=== PATIENT | female | born 1955 | race Caucasian/White ===

== ENCOUNTER → 2019-05-31 | Outpatient (CLI) | payer OTHER ==
--- NOTE | 2019-06-03 11:05 | MAM ---
EXAM DESCRIPTION: 3D Screening BILATERAL : Digital Mammography. CLINICAL HISTORY: 64 years Female ANNUAL SCREENING . History of "dense breast tissue". No personal or family history of breast cancer. Menarche age 12. Childbirth. Postmenopausal 12 years. No HRT Lifetime risk of developing breast cancer (Tyrer-Cuzick model)(%): 5.8. COMPARISON: Baseline study at this facility. No prior reports available. TECHNIQUE: Bilateral CC and MLO projection full-field images, digital tomosynthesis mammographic technique. Bilateral digital 2-D full-field MLO images. CAD not available for tomosynthesis or 2-D images. FINDINGS: The breast parenchymal density pattern is: Heterogeneously dense breast tissue, which may obscure small masses. No skin thickening or nipple retraction. Bilateral solitary microcalcifications. Bilateral skin moles. Focal asymmetry in the retroareolar right breast and focal asymmetry in the posterior third of the left breast at the 6:00-6:30 position, approximately 6 cm from the nipple. IMPRESSION: BI-RADS CATEGORY: 0 - INCOMPLETE- Need additional imaging evaluation. FOLLOW-UP: Recall for additional imaging: Bilateral full-field LM 2-D and tomosynthesis technique. Bilateral directed breast ultrasound of the regions of interest. Written communication concerning the IMPRESSION and Follow-up, will be mailed to the patient and referring health care provider. Electronically signed by: Gwyn Roach MD 06/03/2019 11:03 AM PHARMACOVIGILANCE SCIENTIST
== END ==
LOC: MAMMO 09:59
PROVIDERS: ATTEND Nurse Practitioner Family
DX: Z12.31 Encounter for screening mammogram for malignant neoplasm of breast (principal)

== ENCOUNTER 2019-06-08 13:55 | Emergency (ER) | payer OTHER ==
[2019-06-08] MEDS ORDERED: SODIUM CHLORIDE 0.9% (FLUSH) 10 ML SYG IV PRN (14:02)
[2019-06-08] MEDS ORDERED: ASPIRIN (CHEWABLE) 81 MG TAB PO ONE (14:13)
[2019-06-08] MEDS ORDERED: METOPROLOL TARTRATE INJ 5 MG/5 ML VIAL IV ONE (14:15)
--- NOTE | 2019-06-08 14:19 | ED.PDOC ---
History of Present Illness - General Chief Complaint: Chest Pain/IA Stated Complaint: Chest discomfort Time Seen by Provider: 06/08/19 14:01 Source: patient, Vital Signs reviewed Exam Limitations: no limitations - History of Present Illness Initial Comments: this is a 64-year-old white female who presents today with complaints of chest pain. She was seen at the walk-in clinic and sent here for further evaluation. She states that she is treated for hypertension and and hypercholesterolemia. She had a stress echo performed in 2016 and she has a planned repeat of that in the next week. It was supposed to be performed yesterday however patient did not have that approved by her insurance company. It was rescheduled for the . She sees Dr. Bettye Cardoso as her PCP. She states that she has had chest discomfort off and on for the past 3 days. She states that it feels like a heaviness on the left side of her chest. It does not radiate. She reports some shortness of breath with it. She denies any nausea or vomiting or breaking out into sweats. Patient also states that the intensity is only a 3/10 at its worse and she is not having any pain at this time. She took a baby aspirin this morning and also some metoprolol. She is noted to be hypertensive. Patient also has complained of numbness to the right side of her face for the past week. She states that she has never had a CVA or TIA. She denies any slurred speech or extremity weakness. She states that she relates it to her allergies. Allergies/Adverse Reactions: Allergies NO KNOWN ALLERGY Allergy (Verified 06/08/19 14:11) Home Medications: Ambulatory Orders Clonidine HCl 0.1 mg PO BID #30 tab 06/08/19 Escitalopram [Lexapro] 10 mg PO DAILY 06/08/19 Metoprolol Succinate [Metoprolol Succinate ER] 25 mg PO DAILY 06/08/19 Pravastatin Sodium 20 mg PO DAILY 06/08/19 cloNAZepam [Klonopin] 0.25 mg PO DAILY PRN 06/08/19 Review of Systems - Review of Systems Constitutional: States: malaise. Denies: chills, diaphoresis, fever, weakness EENTM: States: nose congestion, other - facial numbness Respiratory: States: no symptoms reported. Denies: cough, orthopnea, short of breath, stridor, wheezing Cardiology: States: chest pain, palpitations, other - pain is left-sided. Denies: edema, syncope Gastrointestinal/Abdominal: States: no symptoms reported. Denies: abdominal pain, nausea, vomiting Genitourinary: States: no symptoms reported Musculoskeletal: States: no symptoms reported. Denies: back pain, muscle pain, muscle stiffness, neck pain Skin: States: no symptoms reported. Denies: change in color, dryness Neurological: States: anxiety, numbness. Denies: headache, paresthesia, pre- existing deficit, seizure, tingling, tremors, weakness Endocrine: States: no symptoms reported Hematologic/Lymphatic: States: no symptoms reported All other Systems: Reviewed and Negative Family Medical History - Family History Mother Living Status: Hx Cardiac Disease: Yes Physical Exam - Physical Exam General Appearance: Alert, No apparent distress Eyes, Ears, Nose, Throat Exam: PERRL/EOMI, normal ENT inspection, TMs normal, pharynx normal Neck: non-tender, full range of motion, supple, normal inspection, other - no carotid bruit Respiratory: chest non-tender, lungs clear, normal breath sounds, no respiratory distress, no accessory muscle use, respiratory distress Cardiovascular/Chest: normal peripheral pulses, regular rate, rhythm, no edema, no gallop, no JVD, no murmur Peripheral Pulses: radial,right: 2+, radial,left: 2+ Gastrointestinal/Abdominal: normal bowel sounds, non tender, soft, no organomegaly, no pulsatile mass Rectal Exam: deferred Extremity: normal range of motion, non-tender, normal inspection, no pedal edema Neurologic: inside sales executive II-XII nml as tested, no motor/sensory deficits, alert, normal mood/affect, oriented x 3, other - no pronator drift, strength is 5 over 5 times all 4 extremities.no evidence of facial drooping or dysarthria. Skin Exam: normal color, warm/dry Lymphatic: no adenopathy Progress - Progress Progress: 06/08/19 15:01 EKG performed on arrival reveals no evidence of ischemic changes present. There is a normal sinus rhythm with a rate of 80, there is a left axis deviation and also an incomplete right bundle branch block. There is a T-wave inversion noted in leads [address] depressions or elevations. 06/08/19 16:28 patient is not having any chest pain. Her blood pressure is elevated currently her heart rate is in the 60s. She has a diastolic of 106. We will treat this. Patient states that she is normally very well controlled. She has not missed any of her medications. Awaiting second set of enzymes and will repeat EKG. 06/08/19 17:01 Second set of enzymes are negative. Will give a clonidine. Pt was reluctant to initially. Feels that the zyrtec made her bp elevate. She has an appt with Dr. Cardoso later this week. Will likely give a rx and give her parameter for taking it. - Results/Orders Results/Orders: IMPRESSION: No acute findings in the head/brain. Electronically signed by: Kavita Conner MD 06/08/2019 3:00 PM TESTER REGULATOR IMPRESSION: No acute findings in the chest. Electronically signed by: Kavita Conner MD 06/08/2019 2:57 PM TESTER REGULATOR 06/08/19 14:02 Sodium Chloride 0.9% (Flush) [Saline Flush Syringe] 3 ml IV PRN PRN 06/08/19 14:15 EKG STAT 06/08/19 16:20 EKG STAT 06/09/19 09:00 Pulse Ox Daily Laboratory Results - last 24 hr 06/08/19 06/08/19 06/08/19 14:20 14:20 14:20 WBC 5.8 RBC 4.84 Hgb 14.3 Hct 42.8 MCV 88.5 MCH 29.5 MCHC 33.3 RDW 13.2 Plt Count 201 MPV 9.3 Absolute Neuts (auto) 3.30 Absolute Lymphs (auto) 1.80 Absolute Monos (auto) 0.60 Absolute Eos (auto) 0.10 Absolute Basos (auto) 0.00 Neutrophils % 57.3 Lymphocytes % 31.4 Monocytes % 9.8 H Eosinophils % 1.0 Basophils % 0.5 PT 10.0 INR 1.00 PTT (SP) 25.4 D-Dimer, Quantitative 0.29 Sodium 139 Potassium 3.7 Chloride 100 L Carbon Dioxide 26 Anion Gap 16.7 BUN 17 Creatinine 0.79 BUN/Creatinine Ratio 21.5 H Random Glucose 103 Serum Osmolality 279.3 Calcium 10.6 H Magnesium 2.1 Total Bilirubin 0.7 Direct Bilirubin 0.1 Indirect Bilirubin 0.6 AST 31 ALT 24 Alkaline Phosphatase 46 Creatine Kinase 185 H CK-MB (CK-2) 4.2 CK-MB (CK-2) % 2.27 Troponin I < 0.02 B-Natriuretic Peptide 34.9 Serum Total Protein 7.6 Albumin 4.7 06/08/19 16:22 WBC RBC Hgb Hct MCV MCH MCHC RDW Plt Count MPV Absolute Neuts (auto) Absolute Lymphs (auto) Absolute Monos (auto) Absolute Eos (auto) Absolute Basos (auto) Neutrophils % Lymphocytes % Monocytes % Eosinophils % Basophils % PT INR PTT (SP) D-Dimer, Quantitative Sodium Potassium Chloride Carbon Dioxide Anion Gap BUN Creatinine BUN/Creatinine Ratio Random Glucose Serum Osmolality Calcium Magnesium Total Bilirubin Direct Bilirubin Indirect Bilirubin AST ALT Alkaline Phosphatase Creatine Kinase CK-MB (CK-2) CK-MB (CK-2) % Troponin I < 0.02 B-Natriuretic Peptide Serum Total Protein Albumin - EKG/XRAY/CT EKG: Sinus, nonspecific ST T wave Chg Comments: normal sinus rhythm with a rate of 80, left axis deviation, incomplete righ Departure - Departure Clinical Impression: Numbness and tingling of right side of face, Chest pain in adult Hypertension Qualifiers: Hypertension type: essential hypertension Qualified Code(s): I10 - Essential (primary) hypertension Time of Disposition: 17:42 Disposition: Discharge to Home or Self Care Condition: Good Departure Forms: ED Discharge - Pt. Copy, Patient Portal Self Enrollment Instructions: DI for Chest Pain, High Blood Pressure (DC) Referrals: Charbel Cardoso MD [Primary Care Provider] - 1-2 Weeks Prescriptions: Clonidine HCl 0.1 mg PO BID #30 tab Home Medications: Ambulatory Orders Clonidine HCl 0.1 mg PO BID #30 tab 06/08/19 Escitalopram [Lexapro] 10 mg PO DAILY 06/08/19 Metoprolol Succinate [Metoprolol Succinate ER] 25 mg PO DAILY 06/08/19 Pravastatin Sodium 20 mg PO DAILY 06/08/19 cloNAZepam [Klonopin] 0.25 mg PO DAILY PRN 06/08/19 Additional Instructions: patient advised to continue current medications. PCP may increase the Toprol at next visit. Clonidine may be taken if blood pressure is greater than 160/92 twice daily. Keep follow-up appointment on with Dr. Cardoso.if any worsening of symptoms or return to the ER for reevaluation.
--- NOTE | 2019-06-08 14:59 | RAD ---
EXAM: XR Chest, 1 View CLINICAL HISTORY: chest pain TECHNIQUE: Frontal view of the chest. COMPARISON: No relevant prior studies available. FINDINGS: Limitations: None. Lungs: Chronic obstructive changes present with relative paucity of vasculature in the right apex likely representing bullous change. No consolidation. Pleural space: Unremarkable. No pneumothorax. Heart: Unremarkable. No cardiomegaly. Mediastinum: Unremarkable. Bones/joints: Mild convex right scoliotic curvature of the thoracic spine. No acute osseous abnormality noted. Vasculature: Tortuous aorta. IMPRESSION: No acute findings in the chest. Electronically signed by: Kavita Cnoner MD 06/08/2019 2:57 PM RIGGING SUPERVISOR
--- NOTE | 2019-06-08 15:02 | CT ---
EXAM: CT Head Without Intravenous Contrast CLINICAL HISTORY: right facial numbness, htn TECHNIQUE: Axial computed tomography images of the head/brain without intravenous contrast. Sagittal and coronal reformatted images were created and reviewed. This CT exam was performed using one or more of the following dose reduction techniques: automated exposure control, adjustment of the mA and/or kV according to patient size, and/or use of iterative reconstruction technique. COMPARISON: No relevant prior studies available. FINDINGS: Limitations: None. Brain: Unremarkable. No hemorrhage. No significant white matter disease. No edema. Ventricles: Unremarkable. No ventriculomegaly. Bones/joints: Unremarkable. No acute fracture. Soft tissues: Unremarkable. Sinuses: Unremarkable as visualized. No acute sinusitis. Mastoid air cells: Unremarkable as visualized. No mastoid effusion. IMPRESSION: No acute findings in the head/brain. Electronically signed by: Kavita Conner MD 06/08/2019 3:00 PM [facility]
[2019-06-08] MEDS ORDERED: cloNIDine HCL 0.1 MG TAB PO ONE (16:20)
[2019-06-08 18:21] VITALS: BP 125/88; TEMP 97.6; O2SAT 98
== END 2019-06-08 18:02 | disposition home or self-care (01) ==
LOC: ER 13:55
DX: R07.9 Chest pain, unspecified (principal); I10 Essential (primary) hypertension; R20.0 Anesthesia of skin; E78.00 Pure hypercholesterolemia, unspecified; Z79.899 Other long term (current) drug therapy

== ENCOUNTER → 2019-06-14 | Outpatient (CLI) | payer OTHER ==
--- NOTE | 2019-06-15 11:21 | US ---
EXAM DESCRIPTION: Aorta: Ultrasound. CLINICAL HISTORY: OTHER ATRESIA OF AORTA COMPARISON: None. TECHNIQUE: Transcutaneous scanning: Two-dimensional and Doppler modes. FINDINGS: Abdominal aorta diameter - Proximal: 3.4 x 3.2 cm. Mid: 2.0 x 1.9 cm. Distal: 1.9 x 1.7 cm. Common Iliac diameter - Right: 12 mm. Left: 13 mm. Other: Atherosclerotic plaque at multiple segments.. IMPRESSION: 3.4 cm abdominal aortic aneurysm. Recommend follow-up every 3 years. Reference: J Am Brett Radiol 2013;10:789-794. Electronically signed by: Gwyn Roach MD 06/15/2019 11:20 AM [facility]
== END ==
LOC: US 09:45
PROVIDERS: ATTEND Family Medicine
DX: Q25.29 Other atresia of aorta (principal); I71.4 Abdominal aortic aneurysm, without rupture

== ENCOUNTER → 2020-05-08 | Outpatient (CLI) | payer OTHER ==
--- NOTE | 2020-05-09 12:24 | US ---
EXAM DESCRIPTION: Renal: Ultrasound. CLINICAL HISTORY: 65 years Female CYST OF KIDNEY COMPARISON: None TECHNIQUE: Transcutaneous scanning: Two-dimensional and Doppler modes. FINDINGS: Right kidney measures 11.2 x 4.2 x 5.3 cm; volume 131.1 ml. Mid-renal cortical thickness 10 mm. . Increased cortical echogenicity but less than the liver. No hydronephrosis No echogenic stones. Smooth contour of the kidney with no perinephric fluid. Normal vascularity. Proximal ureter not visualized. Left kidney measures 10.4 x 4.8 x 5.2 cm; volume 135.7 ml. Mid-renal cortical thickness of 11 mm. Heterogeneous increased echogenicity of the cortex but less than the liver. No hydronephrosis. No echogenic stones. Smooth contour of the kidney with no perinephric fluid. 2 cm cyst. Normal vascularity.. Proximal ureter not visualized. Urinary bladder was visualized. Bladder volume 16.8 mL. Ureteral jet in the bladder not seen by color Doppler. Patient did not void. Abdominal aorta: Atherosclerotic calcifications and endothelial irregularities but normal caliber from the proximal segment of the distal bifurcation. IMPRESSION: 1. Bilateral cortical thinning and increased echogenicity of the cortex with otherwise normal size most likely related to aging process. 2 cm cyst in the left renal cortex. No echogenic stones or hydronephrosis or perinephric fluid bilaterally. Proximal ureters are not seen. 2. Small urinary bladder and distal ureters were not seen. Atherosclerotic changes in the abdominal aorta but no aneurysm. Electronically signed by: Gwyn Roach MD 05/09/2020 12:22 PM CDT
== END ==
LOC: US 10:09
PROVIDERS: ATTEND Family Medicine
DX: N28.1 Cyst of kidney, acquired (principal); N28.9 Disorder of kidney and ureter, unspecified; N32.89 Other specified disorders of bladder; I70.0 Atherosclerosis of aorta

== ENCOUNTER → 2020-05-19 | Outpatient (CLI) | payer MEDICARE, OTHER | LOC: ECHO 13:03 | PROVIDERS: ATTEND Family Medicine | DX: I10 Essential (primary) hypertension (principal); I51.7 Cardiomegaly; I35.1 Nonrheumatic aortic (valve) insufficiency; I50.30 Unspecified diastolic (congestive) heart failure; I36.1 Nonrheumatic tricuspid (valve) insufficiency ==

== ENCOUNTER → 2020-05-21 | Outpatient (CLI) | payer MEDICARE, OTHER ==
--- NOTE | 2020-05-22 11:18 | US ---
EXAM DESCRIPTION: Aorta: Ultrasound. CLINICAL HISTORY: AAA WITHOUT RUPTURE COMPARISON: Ultrasound aorta May 2019. TECHNIQUE: Transcutaneous scanning: Two-dimensional and Doppler modes. FINDINGS: Abdominal aorta diameter - Proximal: 3.4 x 2.7 cm. Mid: 2.9 x 2.7 cm. Distal: 1.9 x 1.7 cm. Common Iliac diameter - Right: 13 mm. Left: 11 mm. Other: Atherosclerotic intimal wall calcifications. IMPRESSION: Proximal abdominal aortic 3.4 cm aneurysm is stable compared to the prior study almost one year ago. [facility] Best Practice guidelines: 3.4 cm abdominal aortic aneurysm. Recommend follow-up every 3 years. Reference: J Am Brett Radiol 2013;10:[id number]. Electronically signed by: Gwyn Roach MD 05/22/2020 11:16 AM CDT
== END ==
LOC: US 10:53
PROVIDERS: ATTEND Family Medicine
DX: I71.4 Abdominal aortic aneurysm, without rupture (principal); N28.1 Cyst of kidney, acquired

== ENCOUNTER → 2020-06-05 | Outpatient (CLI) | payer MEDICARE, OTHER ==
--- NOTE | 2020-06-09 16:25 | MAM ---
EXAM DESCRIPTION: 3D Screening BILATERAL : Digital Mammography. CLINICAL HISTORY: 65 years Female SCREENING . No complaints. No personal or family history of breast cancer. Menarche age 12. Childbirth age 21. Menopause age 52.. Lifetime risk of developing breast cancer (Tyrer-Cuzick model)(%): 5.6. COMPARISON: Bilateral screening digital breast tomosynthesis May 2019. TECHNIQUE: Bilateral CC and MLO projection full-field images, digital tomosynthesis mammographic technique. Bilateral digital 2-D full-field MLO images. CAD available for 2-D images. FINDINGS: The breast parenchymal density pattern is: Heterogeneously dense breast tissue, which may obscure small masses. Skin mole markers. Coarse calcifications. Solitary microcalcifications. Vascular calcifications.. Birads 2 Findings. No new focal, stellate mass or density, focal asymmetry , and no suspicious microcalcifications bilaterally. Stable mammograms compared to the prior study. IMPRESSION: Benign exam. BIRAD CATEGORY: 2 BENIGN FINDINGS. RECOMMENDATIONS: FOLLOW UP: Routine digital bilateral mammographic screening, one year interval from May 2020. Written communication explaining the IMPRESSION and follow-up, will be mailed to the patient and referring health care provider. According to the [employer], yearly mammograms are recommended starting at age 40 and continuing as long as a woman is in good health. Any breast change noted on a breast self-exam should be reported promptly to the patient's healthcare provider. Breast MRI is recommended for women with an approximately 20-25% or greater lifetime risk of breast cancer, including women with a strong family history of breast or ovarian cancer and women who have been treated for Hodgkin's disease. A negative mammographic report should not delay tissue diagnosis in patients with significant clinical history or physical findings. Extremely dense breast tissue limits the sensitivity of digital mammography. Electronically signed by: Gwyn Roach MD 06/09/2020 4:23 PM ELECTRICAL DESIGNER DRAFTER
== END ==
LOC: MAMMO 09:00
PROVIDERS: ATTEND Family Medicine
DX: Z12.31 Encounter for screening mammogram for malignant neoplasm of breast (principal)

== ENCOUNTER 2020-08-08 13:04 | Emergency (ER) | payer MEDICARE, OTHER ==
--- NOTE | 2020-08-08 13:51 | ED.PDOC ---
History of Present Illness - General Chief Complaint: Chest Pain/WA Stated Complaint: chest pain Time Seen by Provider: 08/08/20 13:16 Source: patient - History of Present Illness Initial Comments: The patient is a 65 year old with past medical history significant for HTN, HLD, generalized anxiety who presents to the ED complaining of chest pain. She reports history of AAA that is being monitored with US so she is very vigilant with her blood pressure. States that she has had "uncontrollable" blood pressure for the past week which has been making her very anxious at home. She states that she has been compliant with all of her medicaitons, that she is seeing readings of 150s/90s. Today while she was driving she developed severe anxiety with ringing in her ears, chest tightness, and chest pain. She states that she doesn't usually get pain with her anxiety. She describes sharp, intermittent pain "like stabbing" that lasts a second or two and resolves. She is unable to identify any specific modifying factor. No other complaints at this time. Allergies/Adverse Reactions: Allergies NO KNOWN ALLERGY Allergy (Verified 06/08/19 14:11) Home Medications: Ambulatory Orders Clonidine HCl 0.1 mg PO BID #30 tab 06/08/19 Escitalopram [Lexapro] 10 mg PO DAILY 06/08/19 Metoprolol Succinate [Metoprolol Succinate ER] 25 mg PO DAILY 06/08/19 Pravastatin Sodium 20 mg PO DAILY 06/08/19 cloNAZepam [Klonopin] 0.25 mg PO DAILY PRN 06/08/19 Review of Systems - Review of Systems Constitutional: States: malaise. Denies: weakness EENTM: Denies: blurred vision, double vision, ear pain, ear discharge Respiratory: States: short of breath. Denies: cough Cardiology: States: chest pain, palpitations. Denies: syncope Gastrointestinal/Abdominal: Denies: abdominal pain, diarrhea, nausea, vomiting Genitourinary: States: no symptoms reported Musculoskeletal: States: no symptoms reported Skin: States: no symptoms reported Neurological: States: anxiety Endocrine: States: no symptoms reported Hematologic/Lymphatic: States: no symptoms reported All other Systems: Reviewed and Negative Past Medical History (General) - Patient Medical History Hx Stroke: No Hx Cardiac Disorders: Yes - Dyslipidemia Hx Congestive Heart Failure: No Hx Hypertension: Yes Hx Diabetes: No Hx MRSA: No Surgical History: cholecystectomy, tonsillectomy - Vaccination History Hx Influenza Vaccination: Yes Hx Pneumococcal Vaccination: No - Social History Hx Tobacco Use: Yes Hx Alcohol Use: No Family Medical History - Family History Mother Living Status: Hx Cardiac Disease: Yes Physical Exam - Physical Exam General Appearance: Anxious, No apparent distress Eyes, Ears, Nose, Throat Exam: normal ENT inspection Neck: non-tender, full range of motion Respiratory: chest non-tender, lungs clear, normal breath sounds, no respiratory distress, no accessory muscle use Cardiovascular/Chest: normal peripheral pulses, regular rate, rhythm, no edema, no gallop, no JVD, no murmur Neurologic: no motor/sensory deficits, alert, oriented x 3, other - anxious Skin Exam: normal color, warm/dry Progress - Progress Progress: 08/08/20 15:49 Patient reassessed, workup as above. Initial troponin is negative. No events on telemetry. BP is improved without intervention. She is requesting anxiety medication. Discussed repeat troponin, if negative anticipate discharge with outpatient follow up. - Results/Orders Results/Orders: Laboratory Results - last 24 hr 08/08/20 08/08/20 08/08/20 13:59 13:59 13:59 WBC 5.0 RBC 4.55 Hgb 13.7 Hct 40.4 MCV 88.8 MCH 30.0 MCHC 33.8 RDW 13.6 Plt Count 216 MPV 8.1 Absolute Neuts (auto) 3.30 Absolute Lymphs (auto) 1.20 Absolute Monos (auto) 0.40 Absolute Eos (auto) 0.00 Absolute Basos (auto) 0.00 Neutrophils % 66.8 Lymphocytes % 23.4 Monocytes % 8.4 Eosinophils % 0.6 L Basophils % 0.8 Sodium 141 Potassium 3.8 Chloride 104 Carbon Dioxide 27 Anion Gap 13.8 BUN 18 Creatinine 0.80 BUN/Creatinine Ratio 22.5 H Random Glucose 104 Serum Osmolality 283.5 Calcium 9.9 Creatine Kinase 111 CK-MB (CK-2) 2.4 CK-MB (CK-2) % Not Reportable Troponin I < 0.02 08/08/20 08/08/20 15:42 17:44 WBC RBC Hgb Hct MCV MCH MCHC RDW Plt Count MPV Absolute Neuts (auto) Absolute Lymphs (auto) Absolute Monos (auto) Absolute Eos (auto) Absolute Basos (auto) Neutrophils % Lymphocytes % Monocytes % Eosinophils % Basophils % Sodium Potassium Chloride Carbon Dioxide Anion Gap BUN Creatinine BUN/Creatinine Ratio Random Glucose Serum Osmolality Calcium Creatine Kinase CK-MB (CK-2) CK-MB (CK-2) % Troponin I Cancelled < 0.02 Medical Decision Making: The patient with history of anxiety presents with chest pain. States that she has been feeling very anxious this week due to COVID-19 and inability to get vaccine yet. Workup as above, no acute EKG changes. Troponin negative x 2. Blood pressure normalized without intervention. Suspect anxiety related, will continue outpatient symptomatic management and she will follow up with her PCP. Discussed importance of close outpatient follow up and stress testing. Home care instructions and return indications reviewed. - EKG/XRAY/CT Comments: 1307 normal sinus rhythm at 79, normal axis, normal intervals, no STEMI Departure - Departure Clinical Impression: Anxiety Chest pain Qualifiers: Chest pain type: unspecified Qualified Code(s): R07.9 - Chest pain, unspecified Time of Disposition: 17:17 Disposition: Discharge to Home or Self Care Condition: Good Departure Forms: ED Discharge - Pt. Copy, Patient Portal Self Enrollment Instructions: DI for Chest Pain, Chest Pain, Chest Pain (DC) Diet: resume usual diet Activity: increase activity as tolerated Referrals: Charbel Cardoso MD [Primary Care Provider] - 1-2 Weeks Home Medications: Ambulatory Orders Clonidine HCl 0.1 mg PO BID #30 tab 06/08/19 Escitalopram [Lexapro] 10 mg PO DAILY 06/08/19 Metoprolol Succinate [Metoprolol Succinate ER] 25 mg PO DAILY 06/08/19 Pravastatin Sodium 20 mg PO DAILY 06/08/19 cloNAZepam [Klonopin] 0.25 mg PO DAILY PRN 06/08/19
--- NOTE | 2020-08-08 14:22 | RAD ---
EXAM: XR Chest, 1 View CLINICAL HISTORY: chest pain TECHNIQUE: Frontal view of the chest. COMPARISON: 06/08/2019 FINDINGS: Lungs: No consolidation. Symmetrical vascular pattern. Pleural space: No pneumothorax. No pleural effusion. Heart: Stable cardiac shadow. Mediastinum: No abnormality noted. Bones/joints: Now identified is a 5 mm nodule projecting over the anterior right 4th rib. Vasculature: Stable tortuous mildly dilated aorta. IMPRESSION: 1. No acute disease. 2. 5 mm nodule projects over the periphery of the right lung. 2 view examination recommended to confirm. Electronically signed by: Kavita Conner MD 08/08/2020 2:20 PM [facility] [email or web address]]
[2020-08-08 18:25] VITALS: BP 145/94; TEMP 97.9; O2SAT 95
== END 2020-08-08 18:10 | disposition home or self-care (01) ==
LOC: ER 13:04
DX: R07.9 Chest pain, unspecified (principal); F41.9 Anxiety disorder, unspecified; E78.00 Pure hypercholesterolemia, unspecified; I10 Essential (primary) hypertension; Z79.899 Other long term (current) drug therapy